=== PATIENT | female | born 1985 | race African-American/Black ===

== ENCOUNTER 2019-10-21 12:10 | Emergency (ER) | payer SELFPAY ==
[~2019-10-21] VITALS: Ht 154.9 cm; Wt 52.2 kg
--- NOTE | 2019-10-21 12:39 | ED GI ---
General Stated Complaint: FEVER,COUGH Source of Information: Patient, Spouse Exam Limitations: No Limitations History of Present Illness Date Seen by Provider: Oct 21, 2019 Time Seen by Provider: 12:10 Initial Comments Patient presents to ER by private conveyance from home with chief complaint of nausea vomiting diarrhea for the past 4 days. She says she's not ill keep anything down. She tried to take Pepto-Bismol but immediately threw it up. She called her clinic and was going to be seen there today however they redirected her to the ER. She denies any fever cough shortness of breath wheezing. She does have a history of asthma and takes Symbicort, and montelukast, rescue inhaler. She says she's not been using her rescue inhaler the past week or 2. She has been trying to reduce her smoking for the past several months. She is down to about a pack of cigarettes per week. She has not had fever but she has had an occasional chill and says it's cold in the ER. She is not seeing any blood per rectum. She has never had colonoscopy or endoscopy. She says she's never been nor had a miscarriage. She does have a history of appendectomy. She's having some discomfort in her abdomen right lower quadrant worse with vomiting or diarrhea. She has had no travel outside the [place] or contact with any known sick contacts. Allergies and Home Medications Allergies Coded Allergies: Penicillins (Verified Allergy, Unknown, 10/21/19) sulfamethoxazole (Verified Allergy, Unknown, 10/21/19) trimethoprim (Verified Allergy, Unknown, 10/21/19) Home Medications Ondansetron 4 Mg Tab.rapdis, 4 MG PO Q6H PRN for NAUSEA/VOMITING Prescribed by: SUSU KU on 10/21/19 6618 Patient Home Medication List Home Medication List Reviewed: Yes Review of Systems Review of Systems Constitutional: chills; No fever; malaise, weakness EENTM: No Blurred Vision, No Double Vision Respiratory: Denies Cough, Denies Shortness of Air, Denies Wheezing Cardiovascular: Denies Chest Pain, Denies Edema Gastrointestinal: See HPI; Denies Abdomen Distended; Abdominal Pain; Denies Constipated; Diarrhea, Nausea, Poor Appetite, Poor Fluid Intake, Vomiting Genitourinary: Denies Burning, Denies Discharge Musculoskeletal: No back pain, No joint pain Skin: No pruritus, No rash All Other Systems Reviewed Negative Unless Noted: Yes Past Jrqhaxp-Bjeyvn-Uicirz Hx Patient Social History Alcohol Use: Occasionally Uses Recreational Drug Use: No Smoking Status: Current Everyday Smoker Type Used: Cigarettes (0.25 ppd) Recent Foreign Travel: No Contact w/Someone Who Travel: No Physical Exam Vital Signs Vital Signs - First Documented 10/21/19 12:10 Temp 36.1 Pulse 94 Resp 18 B/P (MAP) 117/92 (100) Pulse Ox 98 O2 Delivery Room Air Capillary Refill : Height/Weight/BMI Height: '" Weight: lbs. oz. kg; BMI Method: General Appearance: WD/WN, mild distress HEENT: PERRL/EOMI, normal ENT inspection, TMs normal; No pharynx normal (oral mucosa is dry) Neck: full range of motion, supple, normal inspection Respiratory: lungs clear, normal breath sounds, no respiratory distress, no accessory muscle use Cardiovascular: normal peripheral pulses, regular rate, rhythm, tachycardia (105) Peripheral Pulses: 2+ Radial Pulses (R), 2+ Radial Pulses (L) Gastrointestinal: normal bowel sounds (active), soft, tenderness (right lower quadrant and suprapubic without Rovsing sign, psoas sign or Renee's sign) Extremities: normal range of motion, normal inspection, normal capillary refill Neurologic/Psychiatric: alert, normal mood/affect, oriented x 3 Skin: normal color, warm/dry Focused Exam Lactate Level 10/21/19 12:30: Lactic Acid Level 1.44 Lactic Acid Level Laboratory Tests Test 10/21/19 12:30 Lactic Acid Level 1.44 MMOL/L (0.50-2.00) Progress/Results/Core Measures Results/Orders Lab Results Laboratory Tests Test 10/21/19 12:30 10/21/19 13:15 10/21/19 13:30 Range/Units White Blood Count 8.8 4.3-11.0 10^3/uL Red Blood Count 4.15 L 4.35-5.85 10^6/uL Hemoglobin 14.8 11.5-16.0 G/DL Hematocrit 42 35-52 % Mean Corpuscular Volume 101 H 80-99 FL Mean Corpuscular Hemoglobin 36 H 25-34 PG Mean Corpuscular Hemoglobin Concent 35 32-36 G/DL Red Cell Distribution Width 11.6 10.0-14.5 % Platelet Count 267 130-400 10^3/uL Mean Platelet Volume 8.9 7.4-10.4 FL Neutrophils (%) (Auto) 65 42-75 % Lymphocytes (%) (Auto) 25 12-44 % Monocytes (%) (Auto) 9 0-12 % Eosinophils (%) (Auto) 1 0-10 % Basophils (%) (Auto) 0 0-10 % Neutrophils # (Auto) 5.7 1.8-7.8 X 10^3 Lymphocytes # (Auto) 2.2 1.0-4.0 X 10^3 Monocytes # (Auto) 0.8 0.0-1.0 X 10^3 Eosinophils # (Auto) 0.1 0.0-0.3 10^3/uL Basophils # (Auto) 0.0 0.0-0.1 10^3/uL Sodium Level 140 135-145 MMOL/L Potassium Level 3.2 L 3.6-5.0 MMOL/L Chloride Level 98 98-107 MMOL/L Carbon Dioxide Level 27 21-32 MMOL/L Anion Gap 15 H 5-14 MMOL/L Blood Urea Nitrogen 8 7-18 MG/DL Creatinine 0.94 0.60-1.30 MG/DL Estimat Glomerular Filtration Rate > 60 BUN/Creatinine Ratio 9 Glucose Level 97 70-105 MG/DL Lactic Acid Level 1.44 0.50-2.00 MMOL/L Calcium Level 10.1 8.5-10.1 MG/DL Corrected Calcium 8.5-10.1 MG/DL Total Bilirubin 0.4 0.1-1.0 MG/DL Aspartate Amino Transf (AST/SGOT) 26 5-34 U/L Alanine Aminotransferase (ALT/SGPT) 15 0-55 U/L Alkaline Phosphatase 92 40-136 U/L Total Protein 9.0 H 6.4-8.2 GM/DL Albumin 5.1 H 3.2-4.5 GM/DL Prothrombin Time 12.7 12.2-14.7 SEC INR Comment 0.9 0.8-1.4 Activated Partial Thromboplast Time 30 24-35 SEC Urine Color ORANGE Urine Clarity CLEAR Urine pH 6.0 5-9 Urine Specific [place] >=1.030 1.016-1.022 Urine Protein 2+ H NEGATIVE Urine Glucose (UA) NEGATIVE NEGATIVE Urine Ketones 2+ H NEGATIVE Urine Nitrite POSITIVE H NEGATIVE Urine Bilirubin 1+ H NEGATIVE Urine Urobilinogen 1.0 < = 1.0 MG/DL Urine Leukocyte Esterase NEGATIVE NEGATIVE Urine RBC (Auto) 3+ H NEGATIVE Urine RBC 0-2 /HPF Urine WBC 5-10 H /HPF Urine Squamous Epithelial Cells 2-5 /HPF Urine Crystals NONE /LPF Urine Bacteria MODERATE H /HPF Urine Casts NONE /LPF Urine Mucus MODERATE H /LPF Urine Culture Indicated YES Micro Results Microbiology 10/21/19 Influenza Types A,B Antigen (RICHARD) - Final, Complete My Orders Orders - SUSU KU Cbc With Automated Diff (10/21/19 12:31) Comprehensive Metabolic Panel (10/21/19 12:31) Blood Culture (10/21/19 12:31) Urinalysis (10/21/19 12:31) Urine Culture (10/21/19 12:31) Protime With Inr (10/21/19 12:31) Partial Thromboplastin Time (10/21/19 12:31) Chest 1 View, Ap/Pa Only (10/21/19 12:31) Ed Iv/Invasive Line Start (10/21/19 12:31) Ed Iv/Invasive Line Start (10/21/19 12:31) Vital Signs Adult Sepsis Patie Q15M (10/21/19 12:31) Ondansetron Injection (Zofran Injectio (10/21/19 12:45) O2 (10/21/19 12:31) Remove Rings In Anticipation O (10/21/19 12:31) Lactic Acid Analyzer (10/21/19 12:31) Influenza A And B Antigens (10/21/19 12:31) Ed Iv/Invasive Line Start (10/21/19 12:54) Lactated Ringers (Lr 1000 Ml Iv Solution (10/21/19 12:54) Medications Given in ED Current Medications Medications Dose Ordered Sig/Maxwell Route Start Time Stop Time Status Last Admin Dose Admin Lactated Ringer's 1,000 ml @ 0 mls/hr Q0M ONCE IV 10/21/19 12:54 10/21/19 12:55 DC 10/21/19 13:05 1,000 MLS/HR Ondansetron HCl 4 mg PRN PRN IV 3/16/20 12:45 10/21/19 13:05 DC 10/21/19 13:01 4 MG Vital Signs/I&O 10/21/19 12:10 Temp 36.1 Pulse 94 Resp 18 B/P (MAP) 117/92 (100) Pulse Ox 98 O2 Delivery Room Air Progress Progress Note #1: Time: 12:37 Progress Note Patient has symptoms consistent with gastroenteritis and colitis. Her mild tachycardia could be due to dehydration however if she has elevated white count and this would cross the threshold for sepsis. We'll give her a 20 mL/kg bolus of fluids which would be 1 L of lactated Ringer's. She is afebrile presently. Her lung sounds are clear. No history or symptoms consistent with a respiratory illness. Plan to give her some Zofran and Toradol for her symptoms. We'll obtain a urinalysis and go from there. Progress Note #2: Time: 13:24 Progress Note The patient's pain is significantly improved down to a 5 out of 10 compared to 7 out of 10 on arrival. Her nausea is gone. This appears to be consistent based on laboratory examination with gastroenteritis and colitis likely viral. She probably tolerate a trial outpatient therapy and loperamide. Since she was having suprapubic discomfort we'll keep giving her some fluids and trial some oral fluids to get a urinalysis. Diagnostic Imaging Diagonstic Imaging: Xray Plain Films/CT/US/NM/MRI: chest Comments No acute cardiopulmonary processes on the one view chest x-ray. [facility] [place] NAME: BENNY SINGH [facility] REC#: [id number] PT STATUS: REG ER : 1985 PHYSICIAN: SUSU KU MD ADMIT DATE: 10/21/19/ER Draft Date of Exam:10/21/19 CHEST 1 VIEW, AP/PA ONLY INDICATION: Cough and fever. EXAMINATION: Single PA view of the chest is obtained. COMPARISON: No previous study is available for comparison at this time. FINDINGS: Heart size and pulmonary vasculature are within normal limits, and the lungs are clear, bilaterally. IMPRESSION: Unremarkable chest. Dictated on workstation # [id number] Dict: 10/21/19 1323 Trans: 10/21/19 1326 [facility] [id number] Interpreted by: BRAD DIAS MD Electronically signed by: Reviewed: Reviewed by Me Departure Impression Primary Impression: Gastroenteritis and colitis, viral Additional Impression: UTI (urinary tract infection) Qualified Codes: N30.00 - Acute cystitis without hematuria Disposition: HOME, SELF-CARE Condition: Improved Departure-Patient Inst. Decision time for Depature: 14:21 Patient Instructions: Viral Gastroenteritis, Adult (DC), Urinary Tract Infections in Adults, Asymptomatic Bacteriuria Add. Discharge Instructions: Drink lots of fluids. Sports drinks such as Powerade or Gatorade or recommended. Macrobid one tablet twice a day for the next 10 days for urinary tract infection. Use the Zofran 1 tablet under the tongue every 6 hours as needed for nausea or vomiting. If you're still having diarrhea then you can take 2 tablets of loperamide/Imodium. Take another tablet of loperamide every 4 hours afterwards that you're still having watery stool. Tylenol 1000 mg every 8 hours as needed for pain. Ibuprofen 800 mg every 8 hours as needed for pain. You can try AZO for your urinary tract bladder pain. For intractable pain you may use one tablet of hydrocodone every 6 hours as needed. If you start to experience fever, intractable pain despite Tylenol and ibuprofen, or are concerned about becoming dehydrated or other worrisome symptoms then please return to the ER. Otherwise you may follow-up with your primary care provider later in the week for reexamination. Scripts Hydrocodone/Acetaminophen (Hydrocodone/Acetaminophen 5 MG/325 MG TAB) 1 Each Tab let 1 TAB PO Q6H PRN for PAIN-BREAKTHROUGH MDD 10 TABS, #8 TAB 0 Refills Prov: SUSU KU 10/21/19 Nitrofurantoin Monohyd/M-Cryst (Macrobid 100 mg Capsule) 100 Mg Capsule 1 TAB PO BID for 10 Days, #20 CAP 0 Refills Prov: SUSU KU 10/21/19 Ondansetron (Ondansetron Odt) 4 Mg Tab.rapdis 4 MG PO Q6H PRN for NAUSEA/VOMITING, #15 TAB 0 Refills Prov: SUSU KU 10/21/19 Work/School Note: Work Release Form Date Seen in the Emergency Department: Oct 21, 2019 Return to Work: Oct 23, 2019 Restrictions: No Restrictions SUSU KU 16, 2020 12:39
[2019-10-21] MEDS ORDERED: ONDANSETRON 4 MG/2 ML (SDV) Z0FRAN IV PRN (12:45)
[2019-10-21 12:47] LABS: BASOPHILS % (AUTO) 0 % (0-10); EOSINOPHILS # (AUTO) 0.1 10^3/uL (0.0-0.3); EOSINOPHILS % (AUTO) 1 % (0-10); HEMATOCRIT 42 % (35-52); HEMOGLOBIN 14.8 G/DL (11.5-16.0); LYMPHOCYTES # (AUTO) 2.2 X 10^3 (1.0-4.0); LYMPHOCYTES % (AUTO) 25 % (12-44); MEAN CORPUSCULAR HEMOGLOBIN 36 PG (25-34); MEAN CORPUSCULAR HGB CONC 35 G/DL (32-36); MEAN CORPUSCULAR VOLUME 101 FL (80-99); MEAN PLATELET VOLUME 8.9 FL (7.4-10.4); MONOCYTES # (AUTO) 0.8 X 10^3 (0.0-1.0); MONOCYTES % (AUTO) 9 % (0-12); NEUTROPHILS # (AUTO) 5.7 X 10^3 (1.8-7.8); NEUTROPHILS % (AUTO) 65 % (42-75); PLATELET COUNT 267 10^3/uL (130-400); RED CELL DISTRIBUTION WIDTH 11.6 % (10.0-14.5); WHITE BLOOD COUNT 8.8 10^3/uL (4.3-11.0)
[2019-10-21] MEDS ORDERED: LACTATED RINGERS 1,000 ML IV ONE (12:54)
[2019-10-21 13:06] LABS: ALANINE AMINOTRANSFERASE 15 U/L (0-55); ALBUMIN 5.1 GM/DL (3.2-4.5); ALKALINE PHOSPHATASE 92 U/L (40-136); BILIRUBIN,TOTAL 0.4 MG/DL (0.1-1.0); BUN/CREATININE RATIO 9; CALCIUM 10.1 MG/DL (8.5-10.1); CARBON DIOXIDE 27 MMOL/L (21-32); CHLORIDE 98 MMOL/L (98-107); CREATININE SERUM 0.94 MG/DL (0.60-1.30); GFR ESTIMATED > 60; GLUCOSE 97 MG/DL (70-105); POTASSIUM 3.2 MMOL/L (3.6-5.0); SODIUM 140 MMOL/L (135-145)
--- NOTE | 2019-10-21 13:26 | Diagnostic Imaging Report ---
INDICATION: Cough and fever. EXAMINATION: Single PA view of the chest is obtained. COMPARISON: No previous study is available for comparison at this time. FINDINGS: Heart size and pulmonary vasculature are within normal limits, and the lungs are clear, bilaterally. IMPRESSION: Unremarkable chest. Dictated by: Dictated on workstation # [id number]
[2019-10-21] MEDS ORDERED: ONDA4TAB11 PO ×2 (13:28→14:24)
[2019-10-21 13:34] LABS: INR 0.9 (0.8-1.4); PROTHROMBIN TIME PATIENT 12.7 SEC (12.2-14.7)
[2019-10-21 13:52] LABS: BILIRUBIN,URINE 1+ (NEGATIVE); CLARITY,URINE CLEAR; COLOR,URINE ORANGE; GLUCOSE, URINE (UA) NEGATIVE (NEGATIVE); KETONES,URINE 2+ (NEGATIVE); LEUKOCYTE ESTERASE ,URINE NEGATIVE (NEGATIVE); NITRITE,URINE POSITIVE (NEGATIVE); PROTEIN,URINE 2+ (NEGATIVE)
[2019-10-21 14:11] LABS: BACTERIA,URINE MODERATE /HPF; RBC,URINE 0-2 /HPF
--- NOTE | 2019-10-21 14:12 | NUR ---
FLUIDS INFUSED PATIENT REPORTS FEELING BETTER READY TO GO EAT.
[2019-10-21] MEDS ORDERED: NITR-65 PO (14:24)
[2019-10-21] MEDS ORDERED: HYDR-4226 PO (14:24)
[2019-10-21] MEDS ORDERED: HYDROcodone/APAP 5 MG/325 MG (LORTAB) TAB PO ONE (14:30)
--- OUTSIDE RECORDS SUMMARY | 2019-10-21 14:35 | XMS REPORT ---
Author Author Lora IGNACIO Organization [facility] Address [address] [place] [address] Care Team Providers Care Manager Nicu Name Role Phone IVETTE IGNACIO Unavailable PROBLEMS Unknown Problems ALLERGIES Substance Reaction Event Type Date Status Penicillin G Sodium Unknown Drug Allergy Jun, Active Bactrim Unknown Drug Allergy Jun, Active ENCOUNTERS Encounter Location Date Diagnosis [facility] [address] [facility] [id number] [place], [place] [id number] Jul, [facility] [address] [facility] [id number] [place], [place] [id number] Jun, Bronchitis J40 IMMUNIZATIONS No Known Immunizations SOCIAL HISTORY Never Assessed REASON FOR VISIT Pt c/o cough/congestion x's 1 week, worse at night. Juanjo CAMACHO PLAN OF CARE Activity Details Follow Up prn Reason:no improvement VITAL SIGNS Weight 110 lbs 2018-07-03 Temperature 98.1 degrees Fahrenheit 2018-07-03 Heart Rate 100 bpm 2018-07-03 Respiratory Rate 18 2018-07-03 Blood pressure systolic 118 mmHg 2018-07-03 Blood pressure diastolic 68 mmHg 2018-07-03 MEDICATIONS Medication Instructions Dosage Frequency Start Date End Date Duration S tatus Benzonatate 100 MG Orally Three times a day 1 capsule as needed 8h Jun, Active Albuterol Sulfate HFA 108 (90 Base) mcg/act Inhalation 4 times a day prn cough wheezing sob 2 puffs as needed Jun, Ac tive PredniSONE 10 MG Orally 2 per day 1 tablet with food or milk Jun, 5 days Active RESULTS No Results PROCEDURES No Known procedures INSTRUCTIONS MEDICATIONS ADMINISTERED No Known Medications MEDICAL (GENERAL) HISTORY Type Description Date Medical History asthma as child Surgical History appendectomy Surgical History Jaw repair after fracture, hardware plac ed
--- OUTSIDE RECORDS SUMMARY | 2019-10-21 14:35 | XMS REPORT ---
Author Author Lora IGNACIO [facility] Address [address] [place] [address] Care Team Providers Care Employee Relations Assistant Name Role Phone IVETTE IGNACIO Unavailable PROBLEMS Type Condition ICD9-CM Code [id number] Code Onset Dates Condition S tatus SNOMED Code Problem Non-seasonal allergic rhinitis, unspecified trigger J30.89 Active 88153245 Problem Mild persistent asthma with acute exacerbation J45 .31 Active [id number] ALLERGIES Substance Reaction Event Type Date Status Penicillin G Sodium hives Drug Allergy Aug, Active Bactrim hives Drug Allergy Aug, Active ENCOUNTERS Encounter Location Date Diagnosis [facility] [address] [facility] [id number] [place] [id number] Aug, Mild persistent asthma with acute exacer bation J45.31 and Non-seasonal allergic rhinitis, unspecified trigger J30.89 [facility] [address] [id number] [place] [id number] Jul, Mild persistent asthma with acute exacer bation J45.31 and Non-seasonal allergic rhinitis, unspecified trigger J30.89 [facility] [address] [facility] [id number] [place], [place] [id number] Jun, Bronchitis J40 IMMUNIZATIONS No Known Immunizations SOCIAL HISTORY Never Assessed REASON FOR VISIT [facility]- 4 week f/u Asthma [facility] [place] JANICE PLAN OF CARE Activity Details Follow Up 4 Weeks Reason:astma VITAL SIGNS Height 62.5 in 2018-08-28 Weight 113.2 lbs 2018-08-28 Temperature 97 degrees Fahrenheit 2018-08-28 Heart Rate 96 bpm 2018-08-28 Respiratory Rate 18 2018-08-28 BMI 20.37 kg/m2 2018-08-28 Blood pressure systolic 128 mmHg 2018-08-28 Blood pressure diastolic 56 mmHg 2018-08-28 MEDICATIONS Medication Instructions Dosage Frequency Start Date End Date Duration S tatus ZyrTEC 10 mg Orally Once a day 1 tablet 24h 11 Jul, 2018 Active Nasonex 50 MCG/ACT Nasally 2 times a day 1sprays in each nostril 12 h Jul, 30 day(s) Active Singulair 10 MG Orally Once a day 1 tablet 24h Jul, 30 day(s) Active Symbicort 160-4.5 MCG/ACT Inhalation Twice a day 1 puffs 12h Jul, Active Albuterol Sulfate HFA 108 (90 Base) mcg/act Inhalation 4 times a day prn cough wheezing sob 2 puffs as needed Jun, Ac tive Atrovent 0.03 % Nasally Twice a day 2 sprays in each nostril 12h Aug, 30 day(s) Active PredniSONE 10 MG Orally 2 per day 1 tablet with food or milk Aug, 5 days Active RESULTS No Results PROCEDURES Procedure Date Ordered Result Body Site NEB/MDI RX INITIAL Aug 28, 2018 INSTRUCTIONS MEDICATIONS ADMINISTERED No Known Medications MEDICAL (GENERAL) HISTORY Type Description Date Medical History asthma as child Surgical History appendectomy Surgical History Jaw repair after fracture, hardware plac ed
[2019-10-21 14:40] VITALS: BP 117/92
--- NOTE | 2019-10-21 14:40 | NUR ---
PATIENT HAD NO VOMITNG OR DIARRHEA WHILE HER STAY IN ER.
== END 2019-10-21 14:40 | disposition home or self-care (01) ==
LOC: ER 12:12
DX: A08.4 Viral intestinal infection, unspecified (principal); N39.0 Urinary tract infection, site not specified; F17.210 Nicotine dependence, cigarettes, uncomplicated; Z88.0 Allergy status to penicillin; Z88.2 Allergy status to sulfonamides; Z88.1 Allergy status to other antibiotic agents
CPT/HCPCS: 36415; 71045; 80053; 81000; 83605; 85025; 85610; 85730; 87040; 87077; 87088; 87186; 87804

== ENCOUNTER → 2021-01-14 | Outpatient (CLI) | payer SELFPAY ==
[~2021-01-14] MED LIST: HYDR-4226 PO; NITR-65 PO; ONDA4TAB11 PO
--- NOTE | 2021-01-14 20:25 | Diagnostic Imaging Report ---
PROCEDURE: MRI left joint lower extremity without contrast. TECHNIQUE: Multiplanar, multisequence non contrast-enhanced MRI of the left lower extremity was accomplished. 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 COMPARISON: None. FINDINGS: No acute fracture is seen in the left knee. Alignment appears normal. Small cystlike changes are seen at the posterior aspect of the medial femoral condyle. There is mild lateral patellar tilt. The articular cartilage in the patellofemoral compartment demonstrates no full-thickness defects. The articular cartilage in the medial and lateral compartments demonstrate no full-thickness defects. No tears are seen in the medial or lateral menisci. The anterior and posterior cruciate ligaments are intact. The medial collateral ligament is intact. The lateral collateral ligamentous complex is intact. Extensor mechanism is intact. There is moderate edema in the superolateral aspect of Hoffa's fat pad. The medial and lateral retinacula are intact. IMPRESSION: 1. No tear is seen in the ligaments or menisci of the left knee. 2. Cystlike changes at the posterior aspect of the medial femoral condyle, may be degenerative. 3. Mild lateral patellar tilt with edema in Hoffa's fat pad which can be seen with patellofemoral impingement. Dictated by: Dictated on workstation # [id number]
== END ==
LOC: RAD 14:45
PROVIDERS: ATTEND Nurse Practitioner
DX: S83.512A Sprain of anterior cruciate ligament of left knee, initial encounter (principal)
CPT/HCPCS: 73721